=== PATIENT | female | born 1940 | race Caucasian/White ===

== ENCOUNTER 2025-04-30 18:13 | Emergency (ER) | payer MEDICARE, SELFPAY ==
[2025-04-30 18:17] VITALS: BP 125/55
--- NOTE | 2025-04-30 19:56 | ED.GENMED ---
History of Present Illness
General
Chief Complaint: Fall
Review of Systems
Review of Systems
Allergies reviewed?: Yes
All Other Systems: ROS reviewed and negative except as documented in HPI and ROS
Phy Exam
Physical Exam
Physical Exam:
GENERAL: Alert , in no apparent distress
EYE: pupils equal and reactive normal extraocular movements.
NECK: Supple, no significant adenopathy.
ENT: Laceration to the left upper eyelid just below the left eyebrow 2.5 cm in length superficial in depth no foreign body seen. o/p clr, mmm.
CARDIAC: Regular rate and rhythm .
LUNGS: Clear breath sounds bilaterally, no acute respiratory distress, no wheezes/rales/rhonchi
ABDOMEN: Soft, without focal tenderness, no r/g, no cvat
NEUROLOGICAL: Alert and oriented, no focal neuro deficits 5-5 upper and lower extremity strength normal sensation with palpating bilaterally normal finger-nose and [id number] no pronator drift
SKIN: Warm and dry, skin intact.
MUSCULOSKELETAL: No edema, well perfused.
PSYCH: Normal and appropriate interaction.
Course
Vital Signs
Initial and Last Documented VS:
Initial Vital Signs
Temp Pulse Resp BP Pulse Ox
98.0 F 74 16 125/55 99
04/30/25 18:17 04/30/25 18:17 04/30/25 18:17 04/30/25 18:17 04/30/25 18:17
Last Documented Vital Signs
Temp Pulse Resp BP Pulse Ox
98.0 F 74 16 125/55 99
04/30/25 18:17 04/30/25 18:17 04/30/25 18:17 04/30/25 18:17 04/30/25 18:17
*Pulse Oximetry
SaO2: 99
Oxygen Mode of Delivery: Room air
ED Attending Note
-
Portions of this chart may have been created with voice recognition software.� Occasional wrong word or��sound alike� substitutions may have occurred due to the inherent limitations of voice recognition software.
Discharge Plan
Interventions
Interventions:
*Risk Screen - Suicide Last Done: 04/30/25 18:17
*General Assessment Last Done: 04/30/25 18:17
*Neglect/Abuse Screening Last Done: 04/30/25 18:17
Discharge Date and Time
Print Language: MALIAN
[2025-04-30 20:19] VITALS: BP 114/65
[2025-04-30] MEDS: ADACEL 0.5 ML IM (22:31)
--- NOTE | 2025-04-30 22:52 | ED.GENMED ---
History of Present Illness
General
Chief Complaint: Fall
Source: patient, spouse and family
Exam Limitations: none
Time Seen by Provider: 04/30/25 21:51
Nursing documentation reviewed up to this point in time: agreed with
History of Present Illness
History of Present Illness:
Patient is an 84-year-old female who presents to the emergency department after unwitnessed fall at home. Patient states she was walking in her yard at home when she tripped on a tree root and fell striking her face on the ground. She was alone at
the time of the fall however denies any loss of conscious. She was able to get up on her own has been ambulatory since. She did sustain a laceration to her left eyebrow region which was bleeding significantly at home prompting visit to the
emergency department.
She denies any headache, neck pain. She has not had any nausea or vomiting. No visual changes, dizziness, or difficulty ambulating. No back pain, numbness/tingling or weakness in extremities.
She is not on any oral anticoagulation. She is unsure when her last tetanus shot was.
Review of Systems
Review of Systems
Allergies reviewed?: Yes
All Other Systems: ROS reviewed and negative except as documented in HPI and ROS
Phy Exam
Physical Exam
Physical Exam:
Vitals: Patient's vital signs are stable. Afebrile
General: Patient is well appearing, no acute distress. Nontoxic-appearing
Skin: Approximately 1 cm V-shaped laceration at left brow.
Head: Normocephalic, 1 cm laceration to left brow as above. Abrasion to left lateral zygoma
Eyes: Sclera nonicteric. Pupils equal round and reactive to light bilaterally. EOMs intact. No nystagmus.
Throat: Protecting airway
Neck: Normal ROM, no cervical spine tenderness, no meningismus
Cardiac: Regular rate and rhythm, no murmurs. No reproducible chest wall tenderness
Pulm: Normal respiratory effort, no wheezes, rales, rhonchi heard on exam
Abdomen: Abdomen soft and nontender.
Extremities: No evidence of cyanosis or edema. Bilateral upper and lower extremities atraumatic and nontender with full range of motion.
Neuro: AAOx3. No focal deficits.
Psychiatric: Normal affect.
Course
Orders/Labs/Results
Orders:
Orders
04/30/25 22:23
CT Head W/o Iv Contrast Urgent
Comment:
Reason For Exam: fall w/ head strike
Cervical Spine wo Contrast CT [CT Cervical Spine W/o Iv Contr] Urgent
Comment:
Reason For Exam: fall w/ head strike
Tetanus/Diphth/Acelpertussis [Adacel] 0.5 ml IM .ONCE ONE
Vital Signs
Initial and Last Documented VS:
Initial Vital Signs
Temp Pulse Resp BP Pulse Ox
98.0 F 74 16 125/55 99
04/30/25 18:17 04/30/25 18:17 04/30/25 18:17 04/30/25 18:17 04/30/25 18:17
Last Documented Vital Signs
Temp Pulse Resp BP Pulse Ox
97.9 F 68 16 116/61 95
05/01/25 00:01 05/01/25 01:35 05/01/25 01:35 05/01/25 00:01 05/01/25 00:01
Procedures
Laceration Closure
Left Eye brow:
Status of Wound: clean
Size of Wound in cm: 1.0
Description of Wound Edges: surrounded by abrasion
Preparation: cleaned with saline
Revision/Debridement: routine- no revision
Wound exploration: explored to base- no FB
Type of Closure: Dermabond-skin glue
MDM/Problems Addressed
Differential Diagnosis Includes:
Not limited to: Laceration, abrasion, contusion, concussion, intracranial hemorrhage, etc.
MDM/Problems Addressed:
84-year-old female presents after mechanical trip and fall resulting in a laceration to left brow and abrasion to the left cheek. She denies loss of consciousness, headache, or neck pain and is not on oral anticoagulation. Vital signs are stable,
the patient is in no acute distress. Physical exam reveals a small left brow laceration and superficial left cheek abrasion without active bleeding. No evidence of other traumatic injuries or extremity deformities. Neurologically intact and
moving all extremities without deficit.
CT head and cervical spine showed no acute abnormalities. Laceration and skin tear were thoroughly irrigated with normal saline. Laceration closed using skin adhesive. Tdap vaccination updated in the ED. Patient remains hemodynamically stable
and comfortable. She is appropriate for discharge home with wound care instructions and return precautions for signs of infection, worsening pain, or neurologic changes. Patient verbalized understanding and is agreeable with the discharge plan.
Chronic conditions affecting care:
N/A
Acute Exacerbation and/or Progression of Chronic Illness:
N/A
*Radiology
Radiology exam reviewed: radiology read reviewed
*Pulse Oximetry
SaO2: 97
Oxygen Mode of Delivery: Room air
Patient hypoxic: no
*EKG
Interpreted by ED Provider?: NA
*Supervisor Post Wave Interpretation
Rate: Supervisor Post Wave- N/A
*Critical Care Note
Total Time (30-74mins, 75-104mins- exclusive of procedures): Not Applicable
ED Attending Note
-
Portions of this chart may have been created with voice recognition software.� Occasional wrong word or��sound alike� substitutions may have occurred due to the inherent limitations of voice recognition software.
Discharge Plan
Departure
Patient Disposition: Home (Routine Discharge)
Date of Disposition: 05/01/25
Time of Disposition: 01:09
Patient with high blood pressure during this ER visit?: Yes
Condition: Good
Discharge Problem:
Fall, Laceration of eyebrow, left, Abrasion of face
Instructions: Laceration Repair With Glue (DC), Head Injury in Adults (DC), Skin Abrasions (DC)
Referrals:
Pankaj Mosqueda MD [Family Provider, [facility]] - Follow up in 1 week
Activity Restrictions/Additional Instructions:
RETURN TO THE EMERGENCY DEPARTMENT WITH ANY SEVERE HEADACHE OR NECK PAIN, INTRACTABLE NAUSEA/VOMITING, CHANGES IN MENTAL STATUS, FEVER OR REDNESS/SWELLING AROUND WOUNDS, OR ANY OTHER CONCERNS
-The laceration of your left eyebrow was closed with skin glue. This will dissolve on its own over the course of the week. Please keep clean and dry. Monitor for signs of infection.
- As discussed, the imaging of your head and cervical spine showed no acute traumatic injuries. There was an area in the apices of your lungs that represents potential scarring however unable to exclude underlying nodules. Please follow-up with
your primary care provider.
- Follow-up with your primary care provider for further evaluation/management to ensure that your symptoms are improving
Monitor your symptoms closely and return to the emergency department with any acute worsening/new symptoms or any other concerns
Interventions
Interventions:
*Risk Screen - Suicide Last Done: 04/30/25 18:17
*General Assessment Last Done: 04/30/25 18:17
*Neglect/Abuse Screening Last Done: 04/30/25 18:17
*ED- Fall Risk Assessment Last Done: 04/30/25 21:42
*ED COVID-19 Vaccine History Last Done: 04/30/25 21:42
*ED Influenza Vaccine History Last Done: 04/30/25 21:42
*Nursing Disposition Last Done: 05/01/25 01:35
ED-Musculoskeletal Assessment Last Done: 04/30/25 20:20
ED- Neurological Assessment Last Done: 04/30/25 20:16
ED-Skin Assessment Last Done: 04/30/25 20:21
Discharge Date and Time
Discharge Date/Time: 05/01/25 01:36
Print Language: [id number]
[2025-05-01 00:01] VITALS: BP 116/61
== END 2025-05-01 01:36 | disposition home or self-care (01) ==
LOC: EMR 18:13
PROVIDERS: EMERGENCY PHYSICIAN Student in an Organized Health Care Education/Training Program; FAMILY PHYSICIAN Family Medicine
DX: S01.112A Laceration without foreign body of left eyelid and periocular area, initial encounter (principal); R03.0 Elevated blood-pressure reading, without diagnosis of hypertension; Z23 Encounter for immunization; W18.09XA Striking against other object with subsequent fall, initial encounter; Y93.01 Activity, walking, marching and hiking; Y92.007 Garden or yard of unspecified non-institutional (private) residence as the place of occurrence of the external cause
CPT/HCPCS: 99284; 12011; 90471; 70450; 72125; 90715

== ENCOUNTER → 2025-05-13 10:07 | Outpatient (REF) | payer MEDICARE, SELFPAY ==
[2025-05-13 12:29] LABS: Hematocrit 39.7 % (37.0-47.0); Hemoglobin 12.4 g/dL (12.0-16.0); Mean Corp Hgb Conc. 31.2 g/dL (33.0-37.0); Mean Corpuscular Volume 92.5 fL (81.0-99.0); Nucleated Red Blood Cells % 0 %; Platelet Count 185 10^3/uL (130-400); Red Cell Dist. Width 14.4 % (11.5-14.5)
[2025-05-13 12:48] LABS: ALT (SGPT) 20 U/L (0-35); AST (SGOT) 21 U/L (14-36); Albumin 3.9 g/dl (3.5-5.0); Alkaline Phosphatase 57 U/L (38-126); Blood Urea Nitrogen 20 mg/dl (7-17); Calcium 9.3 mg/dl (8.4-10.2); Carbon Dioxide 32 mmol/L (22-30); Chloride 103 mmol/L (98-107); Glucose 96 mg/dl (70-99); Potassium 3.9 mmol/L (3.5-5.1); Sodium 137 mmol/L (135-145); Total Protein 7.4 g/dl (6.3-8.2); eGFR > 60.00
== END ==
LOC: HWLAB 10:07
PROVIDERS: ATTENDING PHYSICIAN Family Medicine
DX: R91.1 Solitary pulmonary nodule (principal); W19.XXXA Unspecified fall, initial encounter
CPT/HCPCS: 36415; 80053; 85025

== ENCOUNTER → 2025-05-23 08:50 | Outpatient (REF) | payer MEDICARE, SELFPAY | LOC: HWRAD 08:50 | PROVIDERS: ATTENDING PHYSICIAN Family Medicine | DX: R91.1 Solitary pulmonary nodule (principal) | CPT/HCPCS: 71250 ==